=== PATIENT | female | born 1940 | race Caucasian/White ===

== ENCOUNTER 2016-09-01 10:45 | Inpatient (IN) | payer OTHER ==
[~2016-09-01] VITALS: Ht 152.4 cm; Wt 64.6 kg
[~2016-09-01 10:45] MED LIST: ASPIRIN81 M1 PO; CEPHALEXIN500 MG PO; HYDROCHLOROTHIA50 MG PO; HYTRIN1 MG PO; LEVO-T25 MCG; OMEPRAZOLE10 MG; TYLENOL325 MG PO; VENLAFAXINE H37.5 M1 PO; ZOLOFT25 MG PO; [UNRECOGNIZED DRUG - OTHER] PO
--- NOTE | 2016-09-01 11:32 | DIAGNOSTIC IMAGING REPORT ---
PROCEDURE: XR CHEST 1 VIEW INDICATION: WEAK TECHNIQUE: Portable AP view 11:21 a.m. COMPARISON: Chest 06/24/16 FINDINGS: Lungs are clear. Heart and mediastinum are normal. Thorax is normal. IMPRESSION: 1. Negative chest.
--- NOTE | 2016-09-01 15:31 | ED ORDER SUMMARY ---
..... Patient: ARMANDO BARKER OrderSheet 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) (weakness) (10:58 09/01/2016 EBonham per protocol) (10:59 EBonham) CBC w Diff Urgent (10:58 09/01/2016 EBonham per protocol) (Ack 11:02 Tee) (Cancelled: Other11:17 Homer LAURENT) CMP Urgent (10:09/01/2016 EBonham per protocol) (Ack 11:02 Tee) (Cancelled: Other11:17 Homer LAURENT) UA-Culture if indicated Urgent (10:58 09/01/2016 EBonham per protocol) (Ack 11:02 Tee) (15:06 LMuller) Cardiac Panel Stat (10:58 09/01/2016 EBonham per protocol) (Ack 11:02 Tee) (15:25 LMuller) EKG - ER Stat (:58 09/01/2016 EBonham per protocol) (10:59 FransicoGonzales) Old Records (06-24-16 [facility] admit Santosh.) (11:16 09/01/2016 Homer LAURENT) (Ack 11:24 Tee) (11:24 Tee) Chest 1V Urgent (11:16 09/01/2016 Homer LAURENT) (Ack 11:24 Tee) (11:25 Alexandernzatalib) TSH Urgent (11:09/01/2016 Homer LAURENT) (Ack 11:24 Tee) (15:25 LMuller) Pulse oximeter (11:17 09/01/2016 Homer LAURENT) (11:17 EBonham) - (Cath for urine if not done yet) (13:27 09/01/2016 Homer LAURENT) (13:29 [facility]) MEDICATION ORDERS: Garamycin IV 80 mg (NOW) (16:11 09/01/2016 Homer LAURENT) [facility] IV FLUIDS: IV Saline Lock (10:58 09/01/2016 Dariel per protocol) (10:59 [facility]) IV NS : initial bolus 500 mL (1000 mL/hr), then 250 mL/hr for 2h (NOW); Routine (11:20 09/01/2016 Homer LAURENT) (11:26 [facility]) Rocephin IV 2 gm/50mL (NOW) (15:32 09/01/2016 Homer LAURENT) (15:45 [facility]) ORDER SHEET NOTES: [Electronically signed by Ashleigh Stock (17:13 09/01/2016)] [Electronically signed by Frank Lewis MD (11:24 09/02/2016)] [Electronically locked/signed by Ashleigh Stock (17:13 09/01/2016)]
--- NOTE | 2016-09-01 15:31 | ED NURSING NOTES ---
Clinical Report - Nurses [facility] [address] [place] [address] 09/01/2016 10:45 Patient: ARMANDO BARKER TRIAGE Triage time 1045. Acuity: LEVEL 3. Chief Complaint: WEAKNESS, DIFFICULTY STANDING and DIFFICULTY WALKING and DISORIENTED. Alert. No acute distress. ALICIA COMA SCORE: [place] Coma Scale: 15- eyes open spontaneously (4); best verbal response- oriented x 4 (5); best motor response- obeys commands (6). --10:56 Ashleigh Stock 10:49 09/01/16. BP: 144/65. HR: 103. RR: 18. O2 saturation: 97%. Temp: 98.7 F. Pain level now 5/10. --10:56 Ashleigh Stock. Weight: 64.8 kg stated. Height/Length: 48 inches Per Patient. BMI: 43.6. --10:48 Ashleigh Stock. Medications Levothyroxine Sodium Oral. Omeprazole Oral. Sertraline HCl Oral. TERAZOSIN HCl Oral. --10:51 Ashleigh Stock Venlafaxine HCl ER Oral. --10:51 Ashleigh Stock Hydrochlorothiazide Oral. --10:51 Ashleigh Stock. Allergies Boniva. Fosamax. Nitrofurantoin. Prozac. --10:51 Ashleigh Stock. History Arrived by EMS. Historian: EMS and patient. This started today. ( Pt was found sittin el[place] floor by caregivers and was some disoriented, pt arrives alert et oriented, in no distress, she sts she just felt very weak when she went to walk and so she sat down). She has had a moderate, constant, dull right-sided headache (since today). PAST MEDICAL HX: Immunizations: up-to-date. --10:56 Ashleigh Stock. PROBLEMS: Changed Mental Status. Hypertension. Animal Bite. UTI - Urinary Tract Infection. --10:52 Ashleigh Stock. ADDITIONAL SURGERIES: Lumpectomy of breast. --10:52 Ashleigh Stock. Interventions ID band on patient. To treatment room. --10:56 Ashleigh Stock. PHYSICAL ASSESSMENT To room via stretcher. Patient gowned. GENERAL / NEURO / PSYCH: Awake. Oriented X 4. Alert. Appears in no acute distress. Speech normal. Mood/affect normal. Moves all extremities equally. No motor deficit. No sensory deficit. HEENT: No facial asymmetry noted. Pupils equal, round and reactive to light. Pharynx within normal limits. RESPIRATORY: Breath sounds within normal limits. Respirations not labored. CVS: Normal sinus rhythm noted. Capillary refill less than 2 seconds. SKIN: Skin is intact, warm and dry. --10:57 Ashleigh Stock. NURSING PROGRESS NOTES 10:59 09/01/2016 Site #1 started via IV in the right forearm with an 20g angiocath, with aseptic technique and good blood return; one attempt. Blood drawn: rainbow set. Labeled in the presence of the patient and sent to the lab. Saline lock flushed with 10 mL saline. --10:59 Ashleigh Stock EKG time: (10:55). EKG was ordered, performed by a tech and shown to the ED physician. --11:03 Benny Yusuf 11:26 09/01/2016 Started bag #1 500 mL IV Fluids IV NS (Saline); bolus of 500 mL wide open via site #1. Confirmed 5 rights. IV patency established. IV site checked: no pain, redness, or swelling. IV flushed thoroughly pre- and post-medication administration. --11:26 Ashleigh Stock 12:00 09/01/16. BP: 129/68. HR: 88. RR: 20. Temp: 94 F. --13:15 Ashleigh Stock 13:00 09/01/16. BP: 134/73. HR: 89. RR: 22. O2 saturation: 93%. --13:16 Ashleigh Stock The patient reports no complaints and she is resting quietly and sleeping. Overall patient status is the same- she states feels the same. --13:16 Ashleigh Stock 13:29 09/01/2016 IV Fluids IV NS Discontinued: bag #1 completed. Total amount infused: 500 mL. --13:29 Ashleigh Stock 15:45 09/01/2016 Started 2 gm of Rocephin (CefTRIAXone Sodium) IVPB in bag #1 50 mL; at 100 mL/hr over 30 minute(s) via site #1; Allergies verified and confirmed 5 rights. IV patency established. IV site checked: no pain, redness, or swelling. IV flushed thoroughly pre- and post-medication administration. --15:45 Ashleigh Stock 16:38 09/01/2016 Started 80 mg of Garamycin (Gentamicin Sulfate) IVPB in bag #1 50 mL; at 100 mL/hr over 30 minute(s) via site #1 via IV pump. Allergies verified and confirmed 5 rights. IV patency established. IV site checked: no pain, redness, or swelling. IV flushed thoroughly pre- and post-medication administration. --16:38 Ashleigh Stock The patient is resting quietly. Overall patient status is the same- she states feels the same. ( Pt eating lunch). --16:43 Ashleigh Stock 15:30 09/01/16. BP: 149/103. HR: 88. RR: 18. O2 saturation: 96%. --16:43 Ashleigh Stock Reassessment after medication administered. She has had no adverse reaction. --16:43 Ashleigh Stock 16:15 09/01/2016 Rocephin IVPB Discontinued: bag #1 completed. Total amount infused: 50 mL. --17:08 Ashleigh Stock 17:08 09/01/2016 Garamycin IVPB Discontinued: bag #1 completed. Total amount infused: 50 mL. IV patency established. IV site checked: no pain, redness, or swelling. IV flushed thoroughly. --17:08 Ashleigh Stock. DISPOSITION / DISCHARGE Report was given to a nurse via a phone call. Report included patient's care, treatment, medications, reviewed medication reconcilliation, and condition (including any recent changes or anticipated changes). All questions were answered. Report was acknowledged and care was transferred. --16:59 Ashleigh Stock Condition at departure: unchanged and stable. Admitted to Acute Care. --16:59 Ashleigh Stock Departure time: 1705. --17:05 Ashleigh Stock. Locked/Released at 09/01/2016 17:13 by Ashleigh Stock,
--- NOTE | 2016-09-01 15:31 | ED ORDER SUMMARY ---
..... Patient: ARMANDO BARKER OrderSheet [facility] VisitID: [id number] [place] [address] 76y, F Registration Date/Time: 09/01/2016 ORDER SHEET Weight: 64.8 kg (stated) Allergies: Boniva, Fosamax, Nitrofurantoin, Prozac GENERAL ORDERS: Cellar Hand (Continuous) (weakness) (10:58 09/01/2016 EBonham per protocol) (10:59 EBonham) CBC w Diff Urgent (10:58 09/01/2016 EBonham per protocol) (Ack 11:02 Tee) (Cancelled: Other11:17 Homer LAURENT) CMP Urgent (10:09/01/2016 EBonham per protocol) (Ack 11:02 Tee) (Cancelled: Other11:17 Homer LAURENT) UA-Culture if indicated Urgent (10:58 09/01/2016 EBonham per protocol) (Ack 11:02 Tee) (15:06 LMuller) Cardiac Panel Stat (10:58 09/01/2016 EBonham per protocol) (Ack 11:02 Tee) (15:25 LMuller) EKG - ER Stat (:58 09/01/2016 EBonham per protocol) (10:59 FransicoGonzales) Old Records (06-24-16 [facility] admit Santosh.) (11:16 09/01/2016 Homer LAURENT) (Ack 11:24 Tee) (11:24 Tee) Chest 1V Urgent (11:16 09/01/2016 Homer LAURENT) (Ack 11:24 Tee) (11:25 Alexandernzatalib) TSH Urgent (11:09/01/2016 Homer LAURENT) (Ack 11:24 Tee) (15:25 LMuller) Pulse oximeter (11:17 09/01/2016 Homer LAURENT) (11:17 EBonham) - (Cath for urine if not done yet) (13:27 09/01/2016 Homer LAURENT) (13:29 [facility]) MEDICATION ORDERS: Garamycin IV 80 mg (NOW) (16:11 09/01/2016 Homer LAURENT) ([facility] IV FLUIDS: IV Saline Lock (10:58 09/01/2016 Dariel per protocol) (10:59 [facility]) IV NS : initial bolus 500 mL (1000 mL/hr), then 250 mL/hr for 2h (NOW); Routine (11:20 09/01/2016 oHmer LAURENT) (11:26 [facility]) Rocephin IV 2 gm/50mL (NOW) (15:32 09/01/2016 Homer LAURENT) (15:45 [facility]) ORDER SHEET NOTES: [Electronically signed by Ashleigh Stock (17:13 09/01/2016)] [Electronically signed by Frank Lewis MD (11:24 09/02/2016)] [Electronically locked/signed by Ashleigh Stock (17:13 09/01/2016)]
--- NOTE | 2016-09-01 15:31 | ED CLINICAL REPORT ---
Clinical Report - Physicians/Mid Levels [facility] [address] [place] [address] 09/01/2016 10:45 Patient: ARMANDO BARKER Time Seen: 11:11 Sep 01 2016. Arrived- By ambulance. Historian- patient and EMS personnel. CPT: ER phys charges level 5 plus (#533709). EKG interpretation (#[id number]). HISTORY OF PRESENT ILLNESS Chief Complaint: WEAKNESS. ( WEAKNESS, DIFFICULTY STANDING and DIFFICULTY WALKING and DISORIENTED. ( Pt was found sitting on floor by caregivers and was some disoriented, pt arrives alert and oriented, in no distress, she states she just felt very weak when she went to walk and so she sat down). She has had a moderate, constant, dull right-sided headache (since today).). Severity described as moderate at its maximum. When seen in the E.D., severity described as moderate. Modifying factors- worsened by standing up. Relieved by rest. 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 Described as feeling weak all over. Similar symptoms previously: None. Recent medical care: Not recently seen/assessed. REVIEW OF SYSTEMS No headache, fainting episodes, head injury, chest pain or palpitations. No black stools, fever, sore throat or throat or cough. No difficulty breathing, abdominal pain, diarrhea or difficulty with urination or urination. No skin rash or rash, enlarged lymph nodes, nasal congestion or urinary frequency. No hematuria, diabetic symptoms or easy bruising. The patient has had chills, weakness,, altered mental status and weakness. She has had difficulty walking. She has had difficulty walking. All systems otherwise negative, except as recorded above. PAST HISTORY ( Changed Mental Status. Hypertension. Animal Bite. UTI - Urinary Tract Infection. --10:52 Ashleigh Stock. macular degeneration KKidney stones Urinary incontinence GGastroesophageal reflux ADDITIONAL SURGERIES: Lumpectomy of breast.). Medications: Hydrochlorothiazide Oral. Venlafaxine HCl ER Oral. Levothyroxine Sodium Oral. Omeprazole Oral. Sertraline HCl Oral. TERAZOSIN HCl Oral. Allergies: Boniva. Fosamax. Nitrofurantoin. Prozac. SOCIAL HISTORY No alcohol use or drug use. ADDITIONAL NOTES The nursing notes have been reviewed. PHYSICAL EXAM Vital Signs: 09/01/2016 10:49 BP: 144/65. HR: 103. RR: 18. O2 saturation: 97%. Temp: 98.7 F. Appearance: Alert. No acute distress. Eyes: No nystagmus. Extraocular movements normal. ENT: Normal ENT inspection. Dry mucous membranes present. Pharynx normal. Neck: Normal inspection. Neck supple. No meningeal signs. CVS: Normal heart rate and rhythm. Heart sounds normal. Pulses normal. Respiratory: No respiratory distress. Breath sounds normal. Abdomen: Soft and nontender. Back: Normal inspection. Skin: Skin warm. Normal skin color. No rash. Extremities: Extremities exhibit normal ROM. No lower extremity edema. Neuro: Alert. Oriented X 3. Mood/affect normal. Speech normal. Cranial nerves normal (as tested). No cerebellar findings. No motor deficit. No sensory deficit. Reflexes normal. (General weakness.). LABS, X-RAYS, AND EKG EKG: Normal sinus rhythm. Normal P waves. Normal OSWALDO. Decreased QRS voltage in the limb leads. Normal ST and T waves. Prior EKG unavailable. The study has been interpreted contemporaneously. The study has been independently viewed by me. Artifact present. Chest X-ray: Normal Chest X-Ray. Laboratory Tests: CBC w Diff: (BEATA: 09/01/2016 10:55) ( MsgRcvd 09/01/2016 11:17) Final results Test Result Flag Units (Reference) WHITE BLOOD COUNT 8.1 K/uL (4.5-11.5) RED BLOOD COUNT 5.07 M/uL (4.00-5.20) HEMOGLOBIN 15.2 gm/dL (12.0-16.0) HEMATOCRIT 46.2 H % (36.0-46.0) MEAN CELL VOLUME 91 fL (80-100) MEAN CORPUSCULAR HGB 30 pg (26-34) MEAN CORPUSCULAR HGB CONC 33 g/dL (31-37) RED CELL DISTRIBUTION WIDTH 14.0 % (11.6-14.8) PLATELET COUNT 213 K/uL (150-400) NEUTROPHIL % 82.7 H % (50-75) LYMPH % 7.6 L % (25-40) MONO % 9.3 % (3-14) EOSINOPHIL % 0.1 % (0-4) BASOPHIL % 0.3 % (0-2) TSH: (BEATA: 09/01/2016 10:55) ( [facility] 09/01/2016 12:29) Final results Test Result Flag Units (Reference) THYROID STIMULATING HORMONE 1.227 uIU/mL (0.30-3.74) CHEM 13 PANEL: (BEATA: 09/01/2016 10:55) ( [facility] 09/01/2016 11:50) IP Test Result Flag Units (Reference) GLUCOSE 129 H mg/dL (70-110) BUN 12 mg/dL (7-18) CREATININE 0.7 mg/dL (0.6-1.3) Estimated GFR >60 mL/min Estimated GFR- >60 mL/min Note: Persistent reduction over 3 months in eGFR<60 mL/min/1.73 m2 defines CKD. Patients with eGFR values>=60 mL/min/1.73 m2 may also have CKD if evidence ofpersistent proteinuria. Additional information may be foundat www.kidney.org. SODIUM 139 mmol/L (136-145) POTASSIUM 3.2 L mmol/L (3.5-5.1) CHLORIDE 101 mmol/L (98-107) CARBON DIOXIDE 25 mmol/L (21-32) CALCIUM 9.9 mg/dL (8.5-10.1) TOTAL PROTEIN 8.0 g/dL (6.4-8.2) ALBUMIN 3.8 g/dL (3.3-5.0) BILIRUBIN, TOTAL 0.4 mg/dL (0.0-1.0) ALKALINE PHOSPHATASE 66 U/L (46-116) AST (SGOT) 28 U/L (15-37) ALT (SGPT) 25 U/L (12-78) MAGNESIUM 2.0 mg/dL (1.8-2.4) CPK 410 H U/L (24-260) TROPONIN I <0.05 ng/mL (0.00-1.5) TROPONIN REFERENCE RANGE:<0.1 NEGATIVE0.1-1.5 INDETERMINANT>1.5 POSITIVE . PROGRESS AND PROCEDURES Course of Care: Pt very weak with dehydration and UTI. Given 2g rocephin IV. Discussed with Dr Frost and he notes she recently had a UTI with a resistent bug. Gentamicin 80 mg IV given . Discussed case with patient's primary care provider, (Santosh). Reviewed test results. Agreed upon treatment plan and decision to admit. Health care provider will see patient in hospital. Patient/family counseled. Old medical records ordered. Disposition orders written. Disposition: Admitted to Acute Care. CLINICAL IMPRESSION Acute generalized weakness. Acute urinary tract infection with cystitis. Acute onset unsteadiness. (Electronically signed by Frank Lewis MD 09/02/2016 11:24)
--- NOTE | 2016-09-01 15:31 | ED CLINICAL REPORT ---
Clinical Report - Physicians/Mid Levels [facility] [address] [place] [address] 09/01/2016 10:45 Patient: ARMANDO BARKER Time Seen: 11:11 Sep 01 2016. Arrived- By ambulance. Historian- patient and EMS personnel. CPT: ER phys charges level 5 plus (#[id number]). EKG interpretation (#[id number]). HISTORY OF PRESENT ILLNESS Chief Complaint: WEAKNESS. ( WEAKNESS, DIFFICULTY STANDING and DIFFICULTY WALKING and DISORIENTED. ( Pt was found sitting on floor by caregivers and was some disoriented, pt arrives alert and oriented, in no distress, she states she just felt very weak when she went to walk and so she sat down). She has had a moderate, constant, dull right-sided headache (since today).). Severity described as moderate at its maximum. When seen in the E.D., severity described as moderate. Modifying factors- worsened by standing up. Relieved by rest. 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 Described as feeling weak all over. Similar symptoms previously: None. Recent medical care: Not recently seen/assessed. REVIEW OF SYSTEMS No headache, fainting episodes, head injury, chest pain or palpitations. No black stools, fever, sore throat or throat or cough. No difficulty breathing, abdominal pain, diarrhea or difficulty with urination or urination. No skin rash or rash, enlarged lymph nodes, nasal congestion or urinary frequency. No hematuria, diabetic symptoms or easy bruising. The patient has had chills, weakness,, altered mental status and weakness. She has had difficulty walking. She has had difficulty walking. All systems otherwise negative, except as recorded above. PAST HISTORY ( Changed Mental Status. Hypertension. Animal Bite. UTI - Urinary Tract Infection. --10:52 Ashleigh Stock. macular degeneration KKidney stones Urinary incontinence GGastroesophageal reflux ADDITIONAL SURGERIES: Lumpectomy of breast.). Medications: Hydrochlorothiazide Oral. Venlafaxine HCl ER Oral. Levothyroxine Sodium Oral. Omeprazole Oral. Sertraline HCl Oral. TERAZOSIN HCl Oral. Allergies: Boniva. Fosamax. Nitrofurantoin. Prozac. SOCIAL HISTORY No alcohol use or drug use. ADDITIONAL NOTES The nursing notes have been reviewed. PHYSICAL EXAM Vital Signs: 09/01/2016 10:49 BP: 144/65. HR: 103. RR: 18. O2 saturation: 97%. Temp: 98.7 F. Appearance: Alert. No acute distress. Eyes: No nystagmus. Extraocular movements normal. ENT: Normal ENT inspection. Dry mucous membranes present. Pharynx normal. Neck: Normal inspection. Neck supple. No meningeal signs. CVS: Normal heart rate and rhythm. Heart sounds normal. Pulses normal. Respiratory: No respiratory distress. Breath sounds normal. Abdomen: Soft and nontender. Back: Normal inspection. Skin: Skin warm. Normal skin color. No rash. Extremities: Extremities exhibit normal ROM. No lower extremity edema. Neuro: Alert. Oriented X 3. Mood/affect normal. Speech normal. Cranial nerves normal (as tested). No cerebellar findings. No motor deficit. No sensory deficit. Reflexes normal. (General weakness.). LABS, X-RAYS, AND EKG EKG: Normal sinus rhythm. Normal P waves. Normal OSWALDO. Decreased QRS voltage in the limb leads. Normal ST and T waves. Prior EKG unavailable. The study has been interpreted contemporaneously. The study has been independently viewed by me. Artifact present. Chest X-ray: Normal Chest X-Ray. Laboratory Tests: CBC w Diff: (BEATA: 09/01/2016 10:55) ( MsgRcvd 09/01/2016 11:17) Final results Test Result Flag Units (Reference) WHITE BLOOD COUNT 8.1 K/uL (4.5-11.5) RED BLOOD COUNT 5.07 M/uL (4.00-5.20) HEMOGLOBIN 15.2 gm/dL (12.0-16.0) HEMATOCRIT 46.2 H % (36.0-46.0) MEAN CELL VOLUME 91 fL (80-100) MEAN CORPUSCULAR HGB 30 pg (26-34) MEAN CORPUSCULAR HGB CONC 33 g/dL (31-37) RED CELL DISTRIBUTION WIDTH 14.0 % (11.6-14.8) PLATELET COUNT 213 K/uL (150-400) NEUTROPHIL % 82.7 H % (50-75) LYMPH % 7.6 L % (25-40) MONO % 9.3 % (3-14) EOSINOPHIL % 0.1 % (0-4) BASOPHIL % 0.3 % (0-2) TSH: (BEATA: 09/01/2016 10:55) ( [facility] 09/01/2016 12:29) Final results Test Result Flag Units (Reference) THYROID STIMULATING HORMONE 1.227 uIU/mL (0.30-3.74) CHEM 13 PANEL: (BEATA: 09/01/2016 10:55) ( [facility] 09/01/2016 11:50) IP Test Result Flag Units (Reference) GLUCOSE 129 H mg/dL (70-110) BUN 12 mg/dL (7-18) CREATININE 0.7 mg/dL (0.6-1.3) Estimated GFR >60 mL/min Estimated GFR- >60 mL/min Note: Persistent reduction over 3 months in eGFR<60 mL/min/1.73 m2 defines CKD. Patients with eGFR values>=60 mL/min/1.73 m2 may also have CKD if evidence ofpersistent proteinuria. Additional information may be foundat www.kidney.org. SODIUM 139 mmol/L (136-145) POTASSIUM 3.2 L mmol/L (3.5-5.1) CHLORIDE 101 mmol/L (98-107) CARBON DIOXIDE 25 mmol/L (21-32) CALCIUM 9.9 mg/dL (8.5-10.1) TOTAL PROTEIN 8.0 g/dL (6.4-8.2) ALBUMIN 3.8 g/dL (3.3-5.0) BILIRUBIN, TOTAL 0.4 mg/dL (0.0-1.0) ALKALINE PHOSPHATASE 66 U/L (46-116) AST (SGOT) 28 U/L (15-37) ALT (SGPT) 25 U/L (12-78) MAGNESIUM 2.0 mg/dL (1.8-2.4) CPK 410 H U/L (24-260) TROPONIN I <0.05 ng/mL (0.00-1.5) TROPONIN REFERENCE RANGE:<0.1 NEGATIVE0.1-1.5 INDETERMINANT>1.5 POSITIVE . PROGRESS AND PROCEDURES Course of Care: Pt very weak with dehydration and UTI. Given 2g rocephin IV. Discussed with Dr Frost and he notes she recently had a UTI with a resistent bug. Gentamicin 80 mg IV given . Discussed case with patient's primary care provider, (Santosh). Reviewed test results. Agreed upon treatment plan and decision to admit. Health care provider will see patient in hospital. Patient/family counseled. Old medical records ordered. Disposition orders written. Disposition: Admitted to Acute Care. CLINICAL IMPRESSION Acute generalized weakness. Acute urinary tract infection with cystitis. Acute onset unsteadiness. (Electronically signed by Frank Lewis MD 09/02/2016 11:24)
--- NOTE | 2016-09-01 17:20 | NUR ---
Received patient to floor from ED via [place]. Patient ambulated from gurney to bed. Patient made comfortable and vital signs taken. Called Dr. Frost to let him know the patient is in 311.
[2016-09-01 17:28] VITALS: BP 171/80
--- NOTE | 2016-09-01 19:58 | HISTORY AND PHYSICAL ---
ADMITTED: 09/01/2016 CHIEF COMPLAINT: 1. Weakness HISTORY OF PRESENT ILLNESS: A 76-year-old female collapsed on the floor at home and was unable to get up, had difficulty standing and could not walk on her own. She was reported to be disoriented on presentation in the emergency department. History is from family. The patient was transported by ambulance to the emergency department. MEDICAL/SURGICAL HISTORY: Past medical history: Remarkable for kidney stones, recurrent infection, recent hospitalization with possible stroke causing electrolyte disturbance and weakness, followed by a stay in rehab with recurrent urinary tract infection , history of macular degeneration, low back pain, hypertension and recurrent pyelonephritis. The patient has also had prediabetes, abnormal CT of the brain, initially thought to be normal pressure hydrocephalus, but negative workup by Neurology. The patient also has history of bladder emptying difficulty, anxiety, ataxia, hypertension, osteoporosis, stress incontinence, and GERD. Surgeries: Lithotripsy x3 and tonsillectomy. MEDICATIONS: 1. Levothyroxine 25 mcg p.o. daily. 2. Terazosin 1 mg p.o. at bedtime. 3. Pyridium 200 mg t.i.d. p.r.n. 4. Vitamin B1 daily. 5. Sertraline 200 mg p.o. daily. 6. Aspirin 81 mg p.o. daily. 7. Hydrochlorothiazide 25 mg p.o. daily. ALLERGIES: 1. FOSAMAX. 2. BONIVA. 3. ANTACIDS. 4. PROZAC. 5. SEPTRA. 6. MACROBID. SOCIAL HISTORY: female, retired. FAMILY HISTORY: Positive for breast cancer in her mother, heart disease in her father, esophageal cancer in a brother. REVIEW OF SYSTEMS: Neurologic: Denies headache. Positive for dizziness and weakness. HEENT: Denies sore throat, ear or eye congestion, ear pain. Respiratory: Denies shortness of breath. Positive for cough. Negative for dyspnea on exertion. Cardiac: Negative for chest pain, palpitations, or paroxysmal nocturnal dyspnea. Gastrointestinal: Negative for bright red per rectum, melena, diarrhea, or constipation. The patient did have constipation last week. Genitourinary: The patient has had some dysuria recently , but none at present. PHYSICAL EXAMINATION: VITAL SIGNS: Blood pressure 144/65, SaO2 97% on room air, temperature 98.7, pulse 103, respirations 18. GENERAL: Well-developed, well-nourished, elderly female in no acute distress. HEENT: Clear. NECK: Supple without adenopathy or thyromegaly. CHEST: Clear to auscultation and percussion. HEART: Regular rate and rhythm without murmur. ABDOMEN: Positive bowel sounds. Soft, nontender, without hepatosplenomegaly or masses. BACK: Straight without CVA tenderness. EXTREMITIES: Without cyanosis, clubbing, or edema. NEUROLOGIC: Nonfocal, but diffuse weakness is noted. The patient is alert and oriented at the time of my evaluation. Cranial nerves II-XII are grossly intact and symmetric. SKIN: Unremarkable. GENITAL: Deferred. RECTAL: Deferred. BREASTS: Deferred. LAB/IMAGING: Laboratories: WBC 8.1, hemoglobin 15.2, hematocrit 46.2, platelets 230,000. Sodium 139, potassium 3.2, chloride 101, bicarb 25, glucose 129, magnesium 2.0. Total bilirubin 0.4, AST 28, ALT 25, alk phos 66. CK 210, MB 2.3, troponin less than 0.05. TSH 1.227. Urinalysis reveals 3+ blood, positive nitrites, positive leukocyte esterase, 25- 50 white cells and 4+ bacteria. IMPRESSION: 1. Urosepsis with dizziness, weakness and confusion caused by infection. 2. 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 3. History of cerebrovascular accident. 4. Hypokalemia. PLAN: Admit for IV hydration, IV antibiotics. Gentamicin will be used as the organism was susceptible to that. Potassium will be supplemented. Deep venous thrombosis prophylaxis to be undertaken with sequential compression devices. CODE STATUS: FULL CODE STATUS requested by patient and family.
[2016-09-01 20:06] VITALS: BP 172/85
--- NOTE | 2016-09-01 20:49 | NUR ---
Pt. is resting in bed at this time comfortably, denies pain. Pt. is drowsy but alert during care, answers questions appropriately but is forgetful at times. Continues to complain of diffuse weakness. Incontinent of urine, wearing attends. IV potassium and maintenance fluids infusing without issues. Bed alarm on due to forgetfulness. Call light within reach. TM.
[2016-09-01 23:31] VITALS: BP 141/79
[2016-09-02 02:31] VITALS: BP 116/58
--- NOTE | 2016-09-02 02:31 | NUR ---
Pt. is resting in bed at this time. Incontinent of urine, wearing attends. Continues to complain of weakness, denies pain. Pt. had fever of 101.1 F at approx. 2300, notified Dr. Frost. Received new orders, administered tylenol for fever. Pt. temperature 98.5 at 0230. Call light within reach. Bed alarm on for precautions due to pt. being somewhat forgetful. Potassium riders infused. WCTM.
[2016-09-02 07:39] VITALS: BP 149/92
--- NOTE | 2016-09-02 08:06 | Progress Note ---
Subjective General 76yo female found down at home, admitted for UTI. Recently hospitalized with weakness, siadh and probable CVA (CT showed no change from in the past but damage is present from old injury). Then was in AHR and had multiply resistant UTI with E. Coli. Sensitive to gentamicin. Physical Exam Vital Signs / I&Os Vital Signs Date Time Temp Pulse Resp B/P Pulse O2 O2 Flow FiO2 Ox Delivery Rate 09/02 0739 98.4 90 14 149/92 92 Room Air 09/02 0231 101.1 101 14 116/58 94 Room Air 09/01 2335 101.1 09/01 2331 100.6 117 14 141/79 95 Room Air 09/01 2006 98.8 103 14 172/85 95 Room Air 09/01 1728 98.8 102 20 171/80 94 Room Air 0.0 I&O 09/01 0800 09/01 1600 09/02 0000 Intake Total Output Total 456 Balance -456 General Appearance Alert, Cooperative, No acute distress Lungs Clear to auscultation Cardiovascular Regular rate and rhythm Abdomen Normal bowel sounds, Soft, No tenderness Extremities No edema Skin No Rashes LAB Results Laboratory Tests 09/01 09/01 09/01 1055 1055 1059 Chemistry Plasma Sodium (136 - 145 mmol/L) 139 Cancelled Plasma Potassium (3.5 - 5.1 mmol/L) 3.2 Cancelled Plasma Chloride (98 - 107 mmol/L) 101 Cancelled CO2 (Enzymatic) (21 - 32 mmol/L) 25 Cancelled BUN (7 - 18 mg/dL) 12 Cancelled Creatinine (0.6 - 1.3 mg/dL) 0.7 Cancelled Est GFR ( Amer) (mL/min) >60 Cancelled Est GFR (Non-Af Amer) (mL/min) >60 Cancelled Glucose (70 - 110 mg/dL) 129 Cancelled Plasma Calcium (8.5 - 10.1 mg/dL) 9.9 Cancelled Plasma Magnesium (1.8 - 2.4 mg/dL) 2.0 Total Bilirubin (0.0 - 1.0 mg/dL) 0.4 Cancelled AST (15 - 37 U/L) 28 Cancelled ALT (12 - 78 U/L) 25 Cancelled Alkaline Phosphatase (46 - 116 U/L) 66 Cancelled Creatine Kinase (24 - 260 U/L) 410 CK-MB (CK-2) (0.5 - 3.2 ng/mL) 2.8 CK/CKMB % Calc (0.0 - 4.0 %) 0.7 Troponin (0.00 - 1.5 ng/mL) <0.05 Total Protein (6.4 - 8.2 g/dL) 8.0 Cancelled Albumin (3.3 - 5.0 g/dL) 3.8 Cancelled TSH 3rd Generation (0.30 - 3.74 uIU/mL) 1.227 Hematology WBC (4.5 - 11.5 K/uL) 8.1 RBC (4.00 - 5.20 M/uL) 5.07 Hgb (12.0 - 16.0 gm/dL) 15.2 Hct (36.0 - 46.0 %) 46.2 MCV (80 - 100 fL) 91 MCH (26 - 34 pg) 30 RDW (11.6 - 14.8 %) 14.0 Neut % (Auto) (50 - 75 %) 82.7 Lymph % (Auto) (25 - 40 %) 7.6 [place] % (Auto) (3 - 14 %) 9.3 Eos % (Auto) (0 - 4 %) 0.1 Baso % (Auto) (0 - 2 %) 0.3 Plt Count, EDTA (150 - 400 K/uL) 213 PUBS MCHC (31 - 37 g/dL) 09/01 1505 0500 0535 Chemistry Plasma Sodium (136 - 145 mmol/L) 139 Plasma Potassium (3.5 - 5.1 mmol/L) 3.4 Plasma Chloride (98 - 107 mmol/L) 104 CO2 (Enzymatic) (21 - 32 mmol/L) 25 BUN (7 - 18 mg/dL) 10 Creatinine (0.6 - 1.3 mg/dL) 0.8 Est GFR ( Amer) (mL/min) >60 Est GFR (Non-Af Amer) (mL/min) >60 Glucose (70 - 110 mg/dL) 105 Plasma Calcium (8.5 - 10.1 mg/dL) 8.8 Plasma Magnesium (1.8 - 2.4 mg/dL) 2.0 Total Bilirubin (0.0 - 1.0 mg/dL) 0.2 AST (15 - 37 U/L) 30 ALT (12 - 78 U/L) 27 Alkaline Phosphatase (46 - 116 U/L) 53 Total Protein (6.4 - 8.2 g/dL) 6.2 Albumin (3.3 - 5.0 g/dL) 3.2 Hematology WBC (4.5 - 11.5 K/uL) 6.6 RBC (4.00 - 5.20 M/uL) 4.31 Hgb (12.0 - 16.0 gm/dL) 13.0 Hct (36.0 - 46.0 %) 39.3 MCV (80 - 100 fL) 91 MCH (26 - 34 pg) 30 RDW (11.6 - 14.8 %) 14.4 Neut % (Auto) (50 - 75 %) 67.6 Lymph % (Auto) (25 - 40 %) 20.2 [place] % (Auto) (3 - 14 %) 11.8 Eos % (Auto) (0 - 4 %) 0.2 Baso % (Auto) (0 - 2 %) 0.2 Plt Count, EDTA (150 - 400 K/uL) 165 PUBS MCHC (31 - 37 g/dL) 33 Urines Urine Color YELLOW Urine Appearance SL CLOUDY Urine pH (5.0 - 8.0) 6.5 Ur Specific [place] (1.010 - 1.030) 1.020 Urine Protein (NEGATIVE) TRACE Urine Ketones (NEGATIVE) NEGATIVE Urine Blood (NEGATIVE) 3+ Urine Nitrite (NEGATIVE) POSITIVE Urine Bilirubin (NEGATIVE) NEGATIVE Urine Urobilinogen (0.2 - 1.0 EU/dL) 0.2 Ur Leukocyte Esterase (NEGATIVE) POSITIVE Urine RBC (0 - 1 rbc/hpf) 1-3 Urine WBC (0 - 1 wbc/hpf) 25-50 Ur Epithelial Cells (0 - 5 EPI/hpf) 1-3 Urine Bacteria (NONE SEEN) MANY (4+) Urine Glucose (NEGATIVE) NEGATIVE Urine Comment CULTURE INDICATED Microbiology Date/Time Procedure - Status Source Growth 09/01 1505 Urine Culture - RECD URINE CATH Assessment and Plan Problem List 1. Febrile urinary tract infection Plan Resistant E. Coli. On gentamicin. 2. Hypokalemia Plan Supplementing potassium 3. Cerebrovascular disease Plan Clinically diagnosed at last admit. 4. Altered mental status Plan Worsened by infection.
--- NOTE | 2016-09-02 11:24 | ED MED RECONCILIATION SUMMARY ---
Patient: ARMANDO BARKER Medication Reconciliation Report [facility] VisitID: [id number] [address] [place] [address] 76y, F Registration Date/Time: 09/01/2016 Weight: 64.8 kg Height/Length: 48 in. BMI: 43.6 ALLERGIES: Boniva, Fosamax, Nitrofurantoin, Prozac The patient's Home Medications are listed below: THE FOLLOWING MEDICATIONS NEED TO BE RECONCILED: Hydrochlorothiazide Oral Levothyroxine Sodium Oral Omeprazole Oral Sertraline HCl Oral TERAZOSIN HCl Oral Venlafaxine HCl ER Oral The source(s) of the original Home Medication information: Not obtained. The following Medications were given to the patient in the Emergency Department: IV NS IV Fluids bolus 500 mL wide open, administered: 09/01/2016 11:26:00 AM Rocephin [IVPB] IVPB bolus 0, then 2 gm 100 mL/hr, administered: 09/01/2016 3:45:00 PM Garamycin [IVPB] IVPB bolus 0, then 80 mg 100 mL/hr, administered: 09/01/2016 4:38:00 PM The following Medications were prescribed to the patient: None.
--- NOTE | 2016-09-02 11:24 | ED DISCHARGE INSTRUCTIONS ---
Patient: ARMANDO BARKER General Instructions [facility] VisitID: [id number] [place] [address] 76y, F Registration Date/Time: 09/01/2016 Acute generalized weakness. Acute urinary tract infection with cystitis. Acute onset unsteadiness. ADDITIONAL INFORMATION Bladder Infection,Female (Adult) A bladder infection ("cystitis" or "UTI") usually causes a constant urge to urinate and a burning when passing urine. Urine may be cloudy, smelly or dark. There may be pain in the lower abdomen. A bladder infection occurs when bacteria from the vaginal area enter the bladder opening (urethra). This can occur from sexual intercourse, wearing tight clothing, dehydration and other factors. Home Care: Drink lots of fluids (at least 6-8 glasses a day, unless you must restrict fluids for other medical reasons). This will force the medicine into your urinary system and flush the bacteria out of your body. Avoid sexual intercourse until your symptoms are gone. Avoid caffeine, alcohol and spicy foods. These can irritate the bladder. A bladder infection is treated with antibiotics. You may also be given Pyridium (generic = phenazopyridine) to reduce the burning sensation. This medicine will cause your urine to become a bright orange color. The orange urine may stain clothing. You may wear a pad or panty-liner to protect clothing. Preventing Future Infections: Always wipe from front to back after a bowel movement. Keep the genital area clean and dry. Drink plenty of fluids each day to avoid dehydration. Both sexual partners should wash before intercourse. Urinate right after intercourse to flush out the bladder. Wear cotton underwear and cotton-lined panty hose; avoid tight-fitting pants. If you are on control pills and are having frequent bladder infections, discuss with your doctor. Follow Up: Return to this facility or see your doctor if ALL symptoms are not gone after three days of treatment. Get Prompt Medical Attention if any of the following occur: Fever of 100.4F (38C) or higher, or as directed by your healthcare provider No improvement by the third day of treatment Increasing back or abdominal pain Repeated vomiting; unable to keep medicine down Weakness, dizziness or fainting Vaginal discharge Pain, redness or swelling in the labia (outer vaginal area) You have been given the following additional information: Bladder Infection, Female (Adult) (Electronically signed by Frank Lewis MD 09/02/2016 11:24)
--- NOTE | 2016-09-02 11:24 | ED MAR SUMMARY ---
..... Medication Administration Record [facility] [address] [place] [address] Patient: ARMANDO BARKER Visit ID: [id number] 76y, F Weight: 64.8 kg Height/Length: 48 in BMI: 43.6 ALLERGIES: Boniva, Fosamax, Nitrofurantoin, Prozac Start 11:26 09/01/2016 Ashleigh Stock,, Stop 13:29 09/01/2016 Ashleigh Stock, Medication Administered: IV NS (SALINE), Dose: IV Fluids, Bolus: 500 mL wide open, Dispensed: 500 mL bag, Site: #1 right forearm. Medication Ordered: IV NS : initial bolus 500 mL (1000 mL/hr), then 250 mL/hr for 2h (NOW); Routine. Start 15:45 09/01/2016 Ashleigh Stock,, Stop 16:15 09/01/2016 Ashleigh Stock, Medication Administered: ROCEPHIN [IVPB] (CEFTRIAXONE SODIUM), Dose: 2 gm IVPB over 30 minute(s), Rate: 100 mL/hr, Dispensed: 50 mL bag, Site: #1 right forearm. Medication Ordered: Rocephin IV 2 gm/50mL (NOW). Start 16:38 09/01/2016 Ashleigh Stock,, Stop 17:08 09/01/2016 Ashleigh tSock, Medication Administered: GARAMYCIN [IVPB] (GENTAMICIN SULFATE), Dose: 80 mg IVPB over 30 minute(s), Rate: 100 mL/hr, Dispensed: 50 mL bag, Site: #1 right forearm. Medication Ordered: Garamycin IV 80 mg (NOW).
--- NOTE | 2016-09-02 11:24 | ED MED RECONCILIATION SUMMARY ---
Patient: ARMANDO BARKER Medication Reconciliation Report [facility] VisitID: [id number] [address] [place] [address] 76y, F Registration Date/Time: 09/01/2016 Weight: 64.8 kg Height/Length: 48 in. BMI: 43.6 ALLERGIES: Boniva, Fosamax, Nitrofurantoin, Prozac The patient's Home Medications are listed below: THE FOLLOWING MEDICATIONS NEED TO BE RECONCILED: Hydrochlorothiazide Oral Levothyroxine Sodium Oral Omeprazole Oral Sertraline HCl Oral TERAZOSIN HCl Oral Venlafaxine HCl ER Oral The source(s) of the original Home Medication information: Not obtained. The following Medications were given to the patient in the Emergency Department: IV NS IV Fluids bolus 500 mL wide open, administered: 09/01/2016 11:26:00 AM Rocephin [IVPB] IVPB bolus 0, then 2 gm 100 mL/hr, administered: 09/01/2016 3:45:00 PM Garamycin [IVPB] IVPB bolus 0, then 80 mg 100 mL/hr, administered: 09/01/2016 4:38:00 PM The following Medications were prescribed to the patient: None.
--- NOTE | 2016-09-02 11:24 | ED MAR SUMMARY ---
..... Medication Administration Record [facility] [address] [place] [address] Patient: ARMANDO BARKER Visit ID: [id number] 76y, F Weight: 64.8 kg Height/Length: 48 in BMI: 43.6 ALLERGIES: Boniva, Fosamax, Nitrofurantoin, Prozac Start 11:26 09/01/2016 Ashleigh Stock,, Stop 13:29 09/01/2016 Ashleigh Stock, Medication Administered: IV NS (SALINE), Dose: IV Fluids, Bolus: 500 mL wide open, Dispensed: 500 mL bag, Site: #1 right forearm. Medication Ordered: IV NS : initial bolus 500 mL (1000 mL/hr), then 250 mL/hr for 2h (NOW); Routine. Start 15:45 09/01/2016 Ashleigh Stock,, Stop 16:15 09/01/2016 Ashleigh Stock, Medication Administered: ROCEPHIN [IVPB] (CEFTRIAXONE SODIUM), Dose: 2 gm IVPB over 30 minute(s), Rate: 100 mL/hr, Dispensed: 50 mL bag, Site: #1 right forearm. Medication Ordered: Rocephin IV 2 gm/50mL (NOW). Start 16:38 09/01/2016 Ashleigh Stock,, Stop 17:08 09/01/2016 Ashleigh Stock, Medication Administered: GARAMYCIN [IVPB] (GENTAMICIN SULFATE), Dose: 80 mg IVPB over 30 minute(s), Rate: 100 mL/hr, Dispensed: 50 mL bag, Site: #1 right forearm. Medication Ordered: Garamycin IV 80 mg (NOW).
[2016-09-02 11:40] VITALS: BP 150/76
[2016-09-02 14:48] VITALS: BP 162/84
--- NOTE | 2016-09-02 16:55 | NUR ---
FAMILY VISITING THE PATIENT, PATIENT TRANSFERRED/PIVOTED TO THE CHAIR WITH TWO PERSON ASSIST, AND DID FAIRLY WELL AND WAS ABLE TO FOLLOW COMMANDS. PATIENT OTHERWISE DENIES ANY PAIN AT THIS TIME, DENIES ANY N/V. DENIES. WILL CONTINUE TO MONITOR.
--- NOTE | 2016-09-02 18:14 | NUR ---
Gentamicin dosing per pharmacy trough 0.4peak 5.6 In range with current dosing - 80 mg IV q12h Urine culture - gram negative rods - ID and sensitivity pending Continue current regimen - 80 mg IV q12h Will repeat levels in a few days if patient continues on therapy. Pharmacy will follow
[2016-09-02 18:27] VITALS: BP 148/78
[2016-09-02 22:28] VITALS: BP 169/72
--- NOTE | 2016-09-03 00:49 | NUR ---
ENTERED ROOM TO CHECK ON PT AND SHE WAS SITTING UP IN BED TAKING OFF HER SCD'S. SHE HAD PULLED HER PIV OUT, WHICH WAS LAYING ON THE FLOOR. SHE SAID SHE DIDNT KNOW WHAT SHE NEEDED. CHECKED BRIEF AND IT WAS WET. NEW BRIEF PLACED AND PERICARE DONE.
[2016-09-03 02:19] VITALS: BP 119/59
--- NOTE | 2016-09-03 05:27 | NUR ---
VSS. Low grade fever. Alert and oriented to self and place only. Forgetful. Bed alarm on. Overnight, she ripped out her IV and through it on the floor and was found sitting up in bed trying to take off her SCD's, stating "I don't know what I'm supposed to be doing." Resettled in bed easily. New PIV started. C/O HUITRON, tylenol given, effective. Otherwise, resting and sleeping between care. Checking brief frequently. Incontinent. Awaiting C/S. On gentamycin. Awaiting blood cultures. Bed in lowest position. Call light in reach. WCTM.
--- NOTE | 2016-09-03 05:35 | NUR ---
Late entry. Pt was transferred from room 311 to room 209B at 1999 on 09/02.
[2016-09-03 06:48] VITALS: BP 131/68
--- NOTE | 2016-09-03 07:38 | Progress Note ---
Subjective General 76yo female found down at home, admitted for UTI. Recently hospitalized with weakness, siadh and probable CVA (CT showed no change from in the past but damage is present from old injury). Then was in AHR and had multiply resistant UTI with E. Coli. Sensitive to gentamicin. Persistent low grade temp on gentamicin. Feeling "OK" Denies CP, palp/sob/ nausea/vomiting/abdominal pain or back pain. Physical Exam Vital Signs / I&Os Vital Signs Date Time Temp Pulse Resp B/P Pulse O2 O2 Flow FiO2 Ox Delivery Rate 09/03 0648 99.7 85 14 131/68 91 Room Air 09/03 0219 99.0 94 20 119/59 94 Room Air 09/02 2228 100.2 101 16 169/72 93 Room Air 09/02 1827 100.0 99 16 148/78 94 Room Air 09/02 1601 Room Air 09/02 1448 99.0 98 16 162/84 95 Room Air 09/02 1140 98.8 86 16 150/76 95 Room Air 09/02 0800 Room Air 0.0 09/02 0739 98.4 90 14 149/92 92 Room Air I&O 09/02 0800 09/02 1600 09/03 0000 Intake Total 1485 901 400 Output Total 291 547 0596 Balance 1144 366 -824 General Appearance Alert, Oriented X3, No acute distress Lungs Clear to auscultation Cardiovascular Regular rate and rhythm Abdomen Normal bowel sounds, Soft, No tenderness Extremities No edema Skin No Rashes, No Breakdown, No Significant Lesions LAB Results Laboratory Tests 09/02 09/02 09/03 1529 1702 0515 Chemistry Plasma Sodium (136 - 145 mmol/L) 138 Plasma Potassium (3.5 - 5.1 mmol/L) 3.4 Plasma Chloride (98 - 107 mmol/L) 102 CO2 (Enzymatic) (21 - 32 mmol/L) 25 BUN (7 - 18 mg/dL) 9 Creatinine (0.6 - 1.3 mg/dL) 0.8 Est GFR ( Amer) (mL/min) >60 Est GFR (Non-Af Amer) (mL/min) >60 Glucose (70 - 110 mg/dL) 98 Plasma Calcium (8.5 - 10.1 mg/dL) 8.7 Plasma Magnesium (1.8 - 2.4 mg/dL) 1.8 Total Bilirubin (0.0 - 1.0 mg/dL) 0.3 AST (15 - 37 U/L) 30 ALT (12 - 78 U/L) 24 Alkaline Phosphatase (46 - 116 U/L) 50 Total Protein (6.4 - 8.2 g/dL) 6.1 Albumin (3.3 - 5.0 g/dL) 3.0 Hematology WBC (4.5 - 11.5 K/uL) 5.9 RBC (4.00 - 5.20 M/uL) 4.18 Hgb (12.0 - 16.0 gm/dL) 12.5 Hct (36.0 - 46.0 %) 38.4 MCV (80 - 100 fL) 92 MCH (26 - 34 pg) 30 RDW (11.6 - 14.8 %) 14.8 Neut % (Auto) (50 - 75 %) 62.3 Lymph % (Auto) (25 - 40 %) 25.7 [place] % (Auto) (3 - 14 %) 11.7 Eos % (Auto) (0 - 4 %) 0.1 Baso % (Auto) (0 - 2 %) 0.2 Plt Count, EDTA (150 - 400 K/uL) 150 PUBS MCHC (31 - 37 g/dL) 33 Toxicology Gentamicin Peak (4.0 - 8.0 ug/mL) 5.6 Gentamicin Trough (0.5 - 1.5 ug/mL) 0.4 Microbiology Date/Time Procedure - Status Source Growth 09/02 2348 Blood Culture - CAN BLOOD Cancelled: DOUBLE ORDER PER AM NURSE 09-02-1609/02 2348 Blood Culture - CAN BLOOD Cancelled: DOUBLE ORDER PER AM NURSE 09-02-16 Assessment and Plan Problem List 1. UTI (urinary tract infection) Plan Continue gentamicin for resistant infection. 2. Hypokalemia Plan Will supplement potassium. 3. Cerebrovascular disease Plan Stable with weakness and forgetfulness. Will order PT for strengthening and transfers.
[2016-09-03 10:34] VITALS: BP 123/64
--- NOTE | 2016-09-03 11:19 | NUR ---
NUTRITION ASSESSMENT: Pt admitted with UTI, weakness, fall and AMS. Rev'd PMH: Kidney stones, recurrent infection, CVA, mac degen, HTN, anxiety, osteoporosis, GERD. 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 Likes applesauce but cannot eat whole sliced apples, prefers soft foods.
[2016-09-03 14:27] VITALS: BP 130/65
--- NOTE | 2016-09-03 14:59 | NUR ---
PATIENT IMPROVING TODAY, SHE WAS SITTING UP IN CHAIR FOR MEAL AND USING BEDSIDE COMMODE. PATIENT COMPLAINED OF NAUSEA, MEDICATED FOR NAUSEA.
[2016-09-03 18:51] VITALS: BP 145/70
--- NOTE | 2016-09-03 21:13 | NUR ---
pt still somewhat weak and requires 1-2 people assist for transfer from bed/chair/BSC. Continues to be occ incontinent, occ continent. Denies nausea, SOB, or pain. Will cont to monitor.
[2016-09-03 22:39] VITALS: BP 160/78
--- NOTE | 2016-09-04 00:59 | NUR ---
RECEIVED REPORT FROM MITALI RN. PATIENT IS RESTING IN BED, DENIES CP, SOB OR NAUSEA AT THIS TIME. PATIENT DENIES PAIN. 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 PT IS TOO WEAK TO AMBULATE TO BSC AND USING BRIEF WITHOUT KNOWING IT'S SOILED/WET. TEMPERATURE HAS BEEN ELEVATED AT THIS TIME OF DAY FOR 3 DAYS. IV PATENT. ANSWERS QUESTIONS APPROPRIATELY, NOT SEEN PATIENT USE CALL LIGHT YET. WCTM. BED LOW AND LOCKED WITH 3 BED RAILS ELEVATED.
[2016-09-04 02:07] VITALS: BP 157/75
--- NOTE | 2016-09-04 05:47 | NUR ---
Pt c/o plugged up nose and requesting medication to alleviate sx. Will report to md in am.
[2016-09-04 06:27] VITALS: BP 154/68
--- NOTE | 2016-09-04 07:49 | Progress Note ---
Subjective General 76yo female found down at home, admitted for UTI. Recently hospitalized with weakness, siadh and probable CVA (CT showed no change from in the past but damage is present from old injury). Then was in AHR and had multiply resistant UTI with E. Coli. Sensitive to gentamicin. Persistent low grade temp on gentamicin. Feeling "OK" Slept well last night. Denies Fever, chills, CP, palp/sob/nausea/vomiting/abdominal pain or back pain. Physical Exam Vital Signs / I&Os Vital Signs Date Time Temp Pulse Resp B/P Pulse O2 O2 Flow FiO2 Ox Delivery Rate 09/04 0627 99.1 86 16 154/68 92 Room Air 09/04 0207 98.6 82 16 157/75 92 Room Air 09/03 2330 0.0 09/03 2239 100.0 89 20 160/78 95 Room Air 09/03 1851 97.9 86 18 145/70 95 Room Air 09/03 1427 96.6 81 18 130/65 95 Room Air 09/03 1034 98.4 79 14 123/64 92 Room Air I&O 09/03 0800 09/03 1600 09/04 0000 Intake Total 887 1017 759 Output Total 593 1242 1198 Balance 294 -225 -439 General Appearance Alert, Cooperative, No acute distress Lungs Clear to auscultation Cardiovascular Regular rate and rhythm Abdomen Normal bowel sounds, Soft, No tenderness Extremities No edema Skin No Rashes, No Breakdown, No Significant Lesions LAB Results Laboratory Tests 09/04 09/04 0505 0510 Chemistry Plasma Sodium (136 - 145 mmol/L) 139 Plasma Potassium (3.5 - 5.1 mmol/L) 4.2 Plasma Chloride (98 - 107 mmol/L) 104 CO2 (Enzymatic) (21 - 32 mmol/L) 26 BUN (7 - 18 mg/dL) 9 Creatinine (0.6 - 1.3 mg/dL) 0.7 Est GFR ( Amer) (mL/min) >60 Est GFR (Non-Af Amer) (mL/min) >60 Glucose (70 - 110 mg/dL) 110 Plasma Calcium (8.5 - 10.1 mg/dL) 9.6 Plasma Magnesium (1.8 - 2.4 mg/dL) 1.9 Total Bilirubin (0.0 - 1.0 mg/dL) 0.2 AST (15 - 37 U/L) 32 ALT (12 - 78 U/L) 26 Alkaline Phosphatase (46 - 116 U/L) 56 Total Protein (6.4 - 8.2 g/dL) 7.0 Albumin (3.3 - 5.0 g/dL) 3.1 Hematology WBC (4.5 - 11.5 K/uL) 4.9 RBC (4.00 - 5.20 M/uL) 4.43 Hgb (12.0 - 16.0 gm/dL) 13.3 Hct (36.0 - 46.0 %) 39.8 MCV (80 - 100 fL) 90 MCH (26 - 34 pg) 30 RDW (11.6 - 14.8 %) 14.7 Neut % (Auto) (50 - 75 %) 57.9 Lymph % (Auto) (25 - 40 %) 30.3 [place] % (Auto) (3 - 14 %) 10.8 Eos % (Auto) (0 - 4 %) 0.6 Baso % (Auto) (0 - 2 %) 0.4 Plt Count, EDTA (150 - 400 K/uL) 154 PUBS MCHC (31 - 37 g/dL) 33 Assessment and Plan Problem List 1. UTI (urinary tract infection) Plan Switched to ertapenem based on sensitivities for easier dosage and reduced toxicity. 2. Cerebrovascular disease Plan Forgetful. Somewhat rambling in answering questions. 3. Hypokalemia Plan Resolved. 4. Antibiotic-resistant bacterial infection Plan On ertapenem. Will require IV antibiotics for full course of therapy.
--- NOTE | 2016-09-04 07:58 | NUR ---
PATIENT SITTING UP IN CHAIR FOR BREAKFAST. DENIES PAIN. SEE SHIFT ASSESSMENT FOR FURTHER DETAILS.
--- NOTE | 2016-09-04 10:01 | NUR ---
pt was standing with STARCH CRAB upon entering room. pt stated she was unable to move her legs to step pivot transfer to the bed. She was requested to take a step forward which she was able to complete with no hesitation. She completed the transfer following demo/return demo directions. Once at the bed she was able to lower herself down to the bed. 2PA to complete sit to supine Mod A and then to boost her up towards the HOB. Once supine pt completed resistive exercises of shoulder and elbow flexion/extension and knee and hip flexion/extension. pt completed 7 bridges. pt is continued to be recommended to d/c to SNF with PT to improve functional strength to complete safe basic mobility.
[2016-09-04 10:20] VITALS: BP 147/70
[2016-09-04 14:21] VITALS: BP 122/70
--- NOTE | 2016-09-04 17:03 | NUR ---
PT IS A&OX3 BUT FORGETFUL AT TIMES, LS ARE COARSE, HR IS REG AND BT ACTIVE. C/O HUITRON AT PAIN LVL IS 3/10. PT REFUSD ANYTHING FOR PAIN, SHE STATED "IT WILL GO AWAY ON ITS OWN." NO C/O NAUSEA. AMBULATES 1 PERSON TO BSC AND AT TIMES INCONTINENT. BED ALARM ON. RESTING W/ CALL LIGHT IN REACH.
[2016-09-04 18:05] VITALS: BP 140/61
[2016-09-04 23:30] VITALS: BP 169/67
--- NOTE | 2016-09-05 01:03 | NUR ---
Pt is using call light to notify of wet brief. Pt states inability to wait long enough to get to bsc for void. Brief and agueda pad were soaked. Provided silverio care. Pt used IS with 1,500 to 2,000 level. Coughing increases post use. wctm.
[2016-09-05 03:38] VITALS: BP 156/77
--- NOTE | 2016-09-05 04:56 | NUR ---
PT WAS SOAKED WITH URINE AND DID NOT USE CALL LIGHT TO NOTIFY RN. PROVIDED WILDER CARE AND NEW TOM/BRIEF. ASKED PT TO USE CALL LIGHT, PLACED IN HER HAND. BED ALARM ON. WCTM.
--- NOTE | 2016-09-05 05:51 | NUR ---
PT IS SLEEPING DEEPLY AND NEEDED 5+ MINUTES OF COMMUNICATION TO WAKE UP ENOUGH FOR MED ADMINISTRATION. KNOWS PLACE BUT COULD NOT REMEMBER YEAR. PROVIDED PHYSICAL TOUCH, ASKING QUESTIONS AND POSITION CHANGE TO WAKE PT UP. PROVIDED SIP OF WATER, HOB AT 45 DEGREES AND WCTM.
[2016-09-05 06:57] VITALS: BP 151/94
--- NOTE | 2016-09-05 07:15 | Progress Note ---
Subjective General 76yo female found down at home, admitted for UTI. Recently hospitalized with weakness, siadh and probable CVA (CT showed no change from in the past but damage is present from old injury). Then was in AHR and had multiply resistant UTI with E. Coli. Sensitive to gentamicin. Persistent low grade temp on gentamicin. Feeling "OK" Slept well last night. Denies Fever, chills, CP, palp/sob/nausea/vomiting/abdominal pain or back pain. Patient states that she is sleepy this am. Generally doing around the same. is looking at Assisted living and will be looking for d/c planning to help figure this out. Physical Exam Vital Signs / I&Os Vital Signs Date Time Temp Pulse Resp B/P Pulse O2 O2 Flow FiO2 Ox Delivery Rate 09/05 0657 98.1 68 18 151/94 95 Room Air 0.0 09/05 0338 98.6 73 15 156/77 93 Room Air 09/04 2330 98.8 73 18 169/67 90 Room Air 09/04 2320 Room Air 0.0 09/04 1805 99.0 89 20 140/61 93 Room Air 0.0 09/04 1658 Room Air 09/04 1421 98.2 80 20 122/70 91 Room Air 0.0 09/04 1020 98.9 88 16 147/70 93 Room Air 09/04 0800 92 I&O 09/05 0000 09/04 1600 09/04 0800 Intake Total 738 990 980 Output Total 1836 987 856 Balance -1098 3 124 General Appearance Alert, Cooperative Lungs Normal air movement, coarse BS Cardiovascular Regular rate and rhythm Abdomen Soft, No tenderness Extremities tr edema bilaterally Assessment and Plan Problem List 1. Altered mental status Plan Has altered MS and still appears confused 2. Febrile urinary tract infection Plan Poly resistant abx. Continue IV at this time 3. Weakness Plan Will work with PT as able 4. Antibiotic-resistant bacterial infection Plan IV abx continue
[2016-09-05 10:24] VITALS: BP 109/77
[2016-09-05 15:00] VITALS: BP 150/84
[2016-09-05 18:09] VITALS: BP 131/70
[2016-09-06] VITALS (7 sets, daily range): BP systolic 110–171; BP diastolic 55–85
--- NOTE | 2016-09-06 07:26 | Progress Note ---
Subjective General 76yo female found down at home, admitted for UTI. Recently hospitalized with weakness, siadh and probable CVA (CT showed no change from in the past but damage is present from old injury). Then was in AHR and had multiply resistant UTI with E. Coli. Sensitive to gentamicin. iNITIALLY TREATED WITH GENTAMICIN, then switched to ertapenem based on sensitivities and ease of management/toxicity. Patient reports sleeping well. She denies pain except occasional headache. She denies nausea, vomiting, cp/palp/sob/dizzy. She admits to feeling weak. Physical Exam Vital Signs / I&Os Vital Signs Date Time Temp Pulse Resp B/P Pulse O2 O2 Flow FiO2 Ox Delivery Rate 09/06 0628 97.9 65 16 127/68 97 Room Air 09/06 0322 97.9 79 20 120/70 94 Room Air 09/06 0115 98.2 81 18 110/74 94 Room Air 09/05 2054 Room Air 09/05 1809 98.4 84 20 131/70 93 Room Air 09/05 1500 98.4 78 20 150/84 92 Room Air 09/05 1024 97.7 78 20 109/77 94 Room Air 0.0 I&O 09/05 0800 09/05 1600 09/06 0000 Intake Total 779 300 Output Total 500 6414 288 [facility] 1133 -1629 -27 General Appearance Alert, Cooperative, No acute distress Lungs Clear to auscultation Cardiovascular Regular rate and rhythm Abdomen Normal bowel sounds, Soft, No tenderness, No guarding Extremities No edema Skin No Rashes Assessment and Plan Problem List 1. Antibiotic-resistant bacterial infection Plan Continue IV ertapenem as infection is resistant to po meds. 2. UTI (urinary tract infection) Plan Continue IV antibiotics. Increase activity and work on disposition 3. Cerebrovascular disease Plan stable
--- NOTE | 2016-09-06 07:40 | NUR ---
patient had an uneventful night. slept for most of it, getting IVF. medicated with tylenol early in the night for a HUITRON. no further complaints. sleeping now. VSS, on RA.
--- NOTE | 2016-09-06 19:50 | NUR ---
RESTING IN BED,DENIES ANY DISCOMFORT AT THIS TIME. IVF INFUSING TO RFA.
[2016-09-07 02:31] VITALS: BP 147/69
--- NOTE | 2016-09-07 05:33 | NUR ---
ASLEEP BETWEEN TOILETTING NEEDS, WITH URINARY FREQUENCY INCONTINENT AND TO BSC. URINE CLEAR, NO ODOR, DENIES DYSURIA.
[2016-09-07 06:45] VITALS: BP 133/65
--- NOTE | 2016-09-07 07:24 | Progress Note ---
Subjective General 76yo female found down at home, admitted for UTI. Recently hospitalized with weakness, siadh and probable CVA (CT showed no change from in the past but damage is present from old injury). Then was in AHR and had multiply resistant UTI with E. Coli. Treated with gentamicin, then switched to ertapenem based on sensitivities and ease of management/toxicity. Patient reports sleeping poorly last night. She c/o incontinence and feels her memory is getting worse. She feels weak overall but denies cp/palp/sob/nausea/ vomiting or abdominal pain or back pain. Physical Exam Vital Signs / I&Os Vital Signs Date Time Temp Pulse Resp B/P Pulse O2 O2 Flow FiO2 Ox Delivery Rate 09/07 0645 97.5 74 14 133/65 91 Room Air 09/07 0231 98.1 74 20 147/69 91 Room Air 09/06 2332 98.2 85 20 171/85 100 Room Air 09/06 2040 Room Air 09/06 1830 97.9 82 18 133/77 95 Room Air 09/06 1437 98.1 83 18 132/55 93 Room Air 09/06 1029 98.1 81 16 149/61 92 Room Air 0.0 I&O 09/06 0800 09/06 1600 09/07 0000 Intake Total 849 398 2383 Output Total 838 1514 1432 Balance -598 -794 2346 General Appearance Alert, Oriented X3, Cooperative, No acute distress Lungs Clear to auscultation Cardiovascular Regular rate and rhythm Abdomen Normal bowel sounds, Soft, No tenderness Extremities No edema Skin No Rashes LAB Results Laboratory Tests 09/07 0510 Chemistry Plasma Sodium (136 - 145 mmol/L) 137 Plasma Potassium (3.5 - 5.1 mmol/L) 4.2 Plasma Chloride (98 - 107 mmol/L) 102 CO2 (Enzymatic) (21 - 32 mmol/L) 28 BUN (7 - 18 mg/dL) 9 Creatinine (0.6 - 1.3 mg/dL) 0.8 Est GFR ( Amer) (mL/min) >60 Est GFR (Non-Af Amer) (mL/min) >60 Glucose (70 - 110 mg/dL) 104 Plasma Calcium (8.5 - 10.1 mg/dL) 9.7 Plasma Magnesium (1.8 - 2.4 mg/dL) 2.1 Total Bilirubin (0.0 - 1.0 mg/dL) 0.2 AST (15 - 37 U/L) 22 ALT (12 - 78 U/L) 22 Alkaline Phosphatase (46 - 116 U/L) 58 Total Protein (6.4 - 8.2 g/dL) 7.2 Albumin (3.3 - 5.0 g/dL) 3.1 Hematology WBC (4.5 - 11.5 K/uL) 5.7 RBC (4.00 - 5.20 M/uL) 4.69 Hgb (12.0 - 16.0 gm/dL) 14.1 Hct (36.0 - 46.0 %) 42.2 MCV (80 - 100 fL) 90 MCH (26 - 34 pg) 30 RDW (11.6 - 14.8 %) 14.9 Neut % (Auto) (50 - 75 %) 45.6 Lymph % (Auto) (25 - 40 %) 42.9 [place] % (Auto) (3 - 14 %) 9.9 Eos % (Auto) (0 - 4 %) 1.2 Baso % (Auto) (0 - 2 %) 0.4 Plt Count, EDTA (150 - 400 K/uL) 184 PUBS MCHC (31 - 37 g/dL) 33 Assessment and Plan Problem List 1. UTI (urinary tract infection) Plan On appropriate antibiotics since admission 6 days ago. Will work on disposition. 2. Antibiotic-resistant bacterial infection Plan Sensitive to ertapenem. 3. Cerebrovascular disease Plan Stable. Pt able to state year, month and location. She did not know the day of the month but new it was the end of August. She is also oriented to self and my name. Her exam is nonfocal.
[2016-09-07 10:45] VITALS: BP 111/72
--- NOTE | 2016-09-07 12:03 | NUR ---
pt unable to be seen d/t high census. Will ck bk 09-08
[2016-09-07 14:28] VITALS: BP 126/52
--- NOTE | 2016-09-07 14:37 | NUR ---
NUTRITION FOLLOW UP NOTE: Pt PO intake appears to vary 0-100% of meals, finger foods and mechanical soft diet continue to help promote self feeding and ease of chewing. No signficant changes in wts noted, normal fluctuations present and expected with IVFs, etc. Noted IVFs d/c'd. Rev'd meds and labs. RD to follow up and monitor nutrition indices prn/protocol. Continue same at this time.
[2016-09-07 18:20] VITALS: BP 113/66
[2016-09-07 22:46] VITALS: BP 144/72
--- NOTE | 2016-09-08 01:03 | NUR ---
Resting in bed sleeping between care. Incontinent of urine. Up to bsc with RN. Linen change done. Ciera care done. New attends. Back to bed. Complaining of headache. Tylenol given. wctm.
[2016-09-08 02:36] VITALS: BP 136/73
--- NOTE | 2016-09-08 03:24 | NUR ---
OFFERED TOILETING. PT REFUSES AND STATES SHE IS NOT WET AND DOES NOT NEED TO GO. CHECKED ATTENDS AND IT IS DRY
--- NOTE | 2016-09-08 05:29 | NUR ---
UP TO BSC FROM BED VIA WALKER AND ONE PERSON ASSIST. NEEDS LOTS OF CUING WITH AMBULATION. ATTENDS CHECKED AND DRY. BACK TO BED.
--- NOTE | 2016-09-08 05:47 | NUR ---
VSS. A&Ox3. Forgetful at times. Uneventful night. Sleeping between care. Incontinent x1. Using attends and BSC. Needs encouragement to use BSC and will retain until incontinent. Bed in lowest position. Call light in reach. Bed alarm on. WCTM.
[2016-09-08 06:13] VITALS: BP 120/62
--- NOTE | 2016-09-08 07:54 | Progress Note ---
Subjective General 76yo female found down at home, admitted for UTI. Recently hospitalized with weakness, siadh and probable CVA (CT showed old lacunar infarct and ventricular dilation, r/o NPH). Previous neurology consult led to diagnosis of it not being NPH). Then was in AHR and had multiply resistant UTI with E. Coli. Treated with gentamicin, then switched to ertapenem based on sensitivities and management/toxicity. Patient now reports that she feels new antibiotic is not working as she is incontinent. Yet she does not recall whether she was incontinent on arrival. History of incontinence extends to her prior hospitalization but she feels it is worse now. She denies dysuria abdominal pain, back pain, nausea, vomiting, fever, chills or sob. Constitutional Weakness, Malaise. Denies: Fever, Chills, Sweats. Respiratory Denies: Cough, SOB w/exertion, Wheezing. Cardiovascular Denies: Chest Pain, Palpitations, Edema, Light-headedness. Gastrointestinal Denies: Nausea, Vomiting, Abdominal Pain, Diarrhea, Constipation. Genitourinary Frequency, Incontinence. Denies: Dysuria, Hematuria. Physical Exam Vital Signs / I&Os Vital Signs Date Time Temp Pulse Resp B/P Pulse O2 O2 Flow FiO2 Ox Delivery Rate 09/08 0613 97.9 71 16 120/62 93 Room Air 09/08 0236 97.5 83 16 136/73 93 Room Air 09/07 2246 97.7 69 16 144/72 94 Room Air 09/07 2106 Room Air 0.0 09/07 1820 98.1 80 16 113/66 95 09/07 1428 97.9 73 16 126/52 93 09/07 1045 97.9 67 16 111/72 93 Room Air I&O 09/07 0800 09/07 1600 09/08 0000 Intake Total 690 250 720 Output Total 1792 611 605 Balance -1102 -361 115 General Appearance Alert, Oriented X3, Cooperative, No acute distress Lungs Clear to auscultation Cardiovascular Regular rate and rhythm Abdomen Normal bowel sounds, Soft, No tenderness Extremities No cyanosis, No clubbing, No edema Skin No Rashes, No Breakdown Assessment and Plan Problem List 1. Cerebrovascular disease Plan CVA, lacunar on CT. Dilated ventricles in pt with incontinence and gait disturbance and dementia. Previously evaluated for NPH and felt not to have it. Will consult with neurology again. 2. UTI (urinary tract infection) Plan Will repeat UA as pt feels there is worsening. 3. Essential hypertension Plan stable,. 4. Antibiotic-resistant bacterial infection Plan Continue antibiotics and repeat UA.
--- NOTE | 2016-09-08 10:12 | NUR ---
pt supine in bed upon arrival and agreeable to skilled PT intervention. pt completed supine to sit SBA with increased encouragement to scoot towards EOB to have feet on ground. pt completed sit to stand using a FWW. pt practiced standing marches with tactile cueing at knee and ankle x7 each. pt then able to complete 2-3 marches clearing her feet off the ground. pt c/o of BUE fatigue and requested to sit down. She took a seated break x3min and then stood back up. She completed side steps towards the HOB with better floor clearance for the first few steps and then needed increased encouragement and v/c for BLE movement. pt completed sit to supine SBA with v/c for direction and body positioning. Once supine pt completed 7reps of the following resistive exercises: B shoulder flexion/extension; B hip & knee flexion/extension; bridges. pt is continued to be recommended to d/c to SNF with PT to progress strengthening and transfer training. exercises: shoulder
[2016-09-08 10:22] VITALS: BP 150/77
[2016-09-08 14:35] VITALS: BP 124/68
[2016-09-08 18:44] VITALS: BP 121/59
[2016-09-08 22:52] VITALS: BP 129/67
[2016-09-09 02:47] VITALS: BP 121/64
--- NOTE | 2016-09-09 03:30 | NUR ---
offered toileting. Pt states she doesn't have to go. Checked attends and they are dry. Bed alarm on.
--- NOTE | 2016-09-09 05:46 | NUR ---
VSS. A&Ox3. Forgetful. Bed alarm on. Sleeping between care throughout shift. Using BSC and attends. PIV occluded around 0530. Bed in lowest position. call light in reach. tm.
[2016-09-09 06:57] VITALS: BP 147/65
[2016-09-09] MEDS ORDERED: INVANZ1 GM IV (07:17)
--- NOTE | 2016-09-09 07:30 | Provider's Discharge Care Plan ---
Problem, Goal, Plan Problem List 1. UTI (urinary tract infection) Goals: Improve disease control Instructions: Take meds as directed 2. Antibiotic-resistant bacterial infection Goals: Improve disease control Instructions: Take meds as directed 3. Cerebrovascular disease Goals: Improved health/wellness Instructions: Increase activity level, Physical therapy 4. Essential hypertension Goals: Improve disease control Instructions: Take meds as directed
--- NOTE | 2016-09-09 08:10 | DISCHARGE SUMMARY ---
ADMIT DATE: 09/01/2016 DISCHARGE DATE: 09/09/2016 ADMITTING DIAGNOSES: 1. Urosepsis with dizziness, weakness and confusion 2. History of multiply resistant urinary tract infection 3. History of cerebrovascular accident 4. Hypokalemia DISCHARGE DIAGNOSES: 1. Urosepsis with dizziness, weakness and confusion 2. Escherichia coli urinary tract infection, multiply resistant, sensitive only to gentamicin and ertapenem BRIEF HISTORY: The patient presented with weakness, falls, and increased confusion. HOSPITAL COURSE: She was admitted for IV antibiotic therapy and started initially on gentamicin. She tolerated this well. When the culture and sensitivity results came back showing sensitivity to ertapenem, she was switched to ertapenem to avoid gentamicin toxicity. The patient also tolerated this well. During the hospital stay, she had gradually improving mental status and decreased confusion, though she has some baseline confusion and difficulty with ambulation from CVA. [facility] facility disposition was arranged, as the patient remains weak and unsteady on her feet, and would benefit from further physical therapy as well as completing a course of IV antibiotics. She needs a total 10-day treatment with IV antibiotic. She is currently on day 7 of treatment; therefore 3 more days of ertapenem IV 1000 mg daily are indicated. Repeat urinalysis in 1 week is recommended. DISPOSITION: [facility]. DISCHARGE MEDICATIONS/INSTRUCTIONS: Discharge medications: Ertapenem 1 gram IV daily x3 days. Terazosin 1 mg p.o. at bedtime. Donepezil 10 mg p.o. daily. Levothyroxine 25 mcg p.o. daily. Acetaminophen 325 mg 2 p.o. q.6 hours p.r.n. Aspirin 81 mg p.o. daily. Sertraline 200 mg p.o. daily. Hydrochlorothiazide 25 mg p.o. daily. Special instructions: Follow up per [facility] on discharge from [facility]. She will return to my office for followup there. Repeat urinalysis in 1 week is recommended.
--- NOTE | 2016-09-09 08:10 | DISCHARGE SUMMARY ---
ADMIT DATE: 09/01/2016 DISCHARGE DATE: 09/09/2016 ADMITTING DIAGNOSES: 1. Urosepsis with dizziness, weakness and confusion 2. History of multiply resistant urinary tract infection 3. History of cerebrovascular accident 4. Hypokalemia DISCHARGE DIAGNOSES: 1. Urosepsis with dizziness, weakness and confusion 2. Escherichia coli urinary tract infection, multiply resistant, sensitive only to gentamicin and ertapenem BRIEF HISTORY: The patient presented with weakness, falls, and increased confusion. HOSPITAL COURSE: She was admitted for IV antibiotic therapy and started initially on gentamicin. She tolerated this well. When the culture and sensitivity results came back showing sensitivity to ertapenem, she was switched to ertapenem to avoid gentamicin toxicity. The patient also tolerated this well. During the hospital stay, she had gradually improving mental status and decreased confusion, though she has some baseline confusion and difficulty with ambulation from CVA. residential facility disposition was arranged, as the patient remains weak and unsteady on her feet, and would benefit from further physical therapy as well as completing a course of IV antibiotics. She needs a total 10-day treatment with IV antibiotic. She is currently on day 7 of treatment; therefore 3 more days of ertapenem IV 1000 mg daily are indicated. Repeat urinalysis in 1 week is recommended. DISPOSITION: residential. DISCHARGE MEDICATIONS/INSTRUCTIONS: Discharge medications: Ertapenem 1 gram IV daily x3 days. Terazosin 1 mg p.o. at bedtime. Donepezil 10 mg p.o. daily. Levothyroxine 25 mcg p.o. daily. Acetaminophen 325 mg 2 p.o. q.6 hours p.r.n. Aspirin 81 mg p.o. daily. Sertraline 200 mg p.o. daily. Hydrochlorothiazide 25 mg p.o. daily. Special instructions: Follow up per [facility] on discharge from [facility]. She will return to my office for followup there. Repeat urinalysis in 1 week is recommended.
--- NOTE | 2016-09-09 08:24 | NUR ---
pt in the middle of bed to chair transfer. Continues to need constant v/c for safety and activity sequencing. pt discharging to SNF today, no PT.
--- NOTE | 2016-09-09 11:03 | NUR ---
PT HAS HAD NEW [place] PLACED IN TO RECEIVE ANTIBIOTICS AT [facility]. SHE RECEIVED HER DAILY DOSE HERE AT THE HOSPITAL TODAY. REPORT WAS CALLED TO STEVIE AT [facility] AND ALL QUESTIONS ANSWERED.
--- NOTE | 2016-09-09 11:16 | NUR ---
TRANSFERRED TO [facility] IN [place]. AND DAUGHTER HAVE BEEN NOTIFIED BY DISCHARGE PLANNING.
== END 2016-09-09 11:22 | DRG 690 ==
LOC: ED SRH 10:45 → TRANS SRH 15:54 → ACUTE3 SRH 17:13 → ACUTE2 SRH 09-02 20:10
PROVIDERS: ADMIT Family Medicine
DX: N39.0 Urinary tract infection, site not specified (principal); B96.20 Unspecified Escherichia coli [E. coli] as the cause of diseases classified elsewhere; Z16.24 Resistance to multiple antibiotics; R53.1 Weakness; R27.0 Ataxia, unspecified; E87.6 Hypokalemia; N39.3 Stress incontinence (female) (male); R73.03 Prediabetes; I10 Essential (primary) hypertension
CPT/HCPCS: 85244; 90004; 90065; 90074; 90100; 90148; 90469; 90616; 90617; 92610; 92720; 93140; 95059; 98240; 98241